=== PATIENT | female | born 1945 | race Caucasian/White ===

== ENCOUNTER → 2018-09-20 12:44 | Outpatient (CLI) | payer OTHER, SELFPAY | PROVIDERS: Family Provider Internal Medicine; PCP Internal Medicine; Visit Provider Physician Assistant | DX: M85.88 Other specified disorders of bone density and structure, other site (principal); Z78.0 Asymptomatic menopausal state; Z82.62 Family history of osteoporosis | CPT/HCPCS: 77080 ==

== ENCOUNTER → 2018-10-24 10:43 | Outpatient (CLI) | payer OTHER, SELFPAY ==
--- NOTE | 2018-10-24 | DI.MG.S_ITS ---
BILATERAL DIGITAL SCREENING MAMMOGRAM 3D/2D WITH CAD: 10/24/2018 CLINICAL: Routine screening. Family history of breast cancer. Comparison is made to exams dated: 01/31/2017 mammogram - [facility], 03/21/2015 mammogram - [facility], and 11/18/2011 mammogram - [facility]. The tissue of both breasts is heterogeneously dense. This may lower the sensitivity of mammography. Current study was also evaluated with a Computer Aided Detection (CAD) system. No significant masses, calcifications, or other findings are seen in either breast. There has been no significant interval change. IMPRESSION: NEGATIVE There is no mammographic evidence of malignancy. A 1 year screening mammogram is recommended. This exam was interpreted at Station ID: [id number]. NOTE: For mammograms, a report in lay terms will be sent to the patient. Approximately 15% of breast malignancies will not be visualized mammographically. In the management of a palpable breast mass, a negative mammogram must not discourage biopsy of a clinically suspicious lesion. Electronically Signed By: Nisha oseguera/sena:10/24/2018 11:51:51 letter sent: Normal Exam ACR BI-RADS Category 1: Negative 3341F
== END ==
PROVIDERS: PCP Internal Medicine; Visit Provider Internal Medicine
DX: Z12.31 Encounter for screening mammogram for malignant neoplasm of breast (principal); Z80.3 Family history of malignant neoplasm of breast
CPT/HCPCS: 77063; 77067

== ENCOUNTER → 2018-11-06 09:16 | Outpatient (CLI) | payer OTHER, SELFPAY ==
[2018-11-06 10:42] LABS: Add Manual Diff / Slide Review NO; Basophils Absolute Auto 100 /uL (0-100); Basophils Percent Auto 1.3 % (0-2); Eosinophils Absolute Auto 100 /uL (0-450); Eosinophils Percent Auto 2.7 % (2-4); Hemoglobin 14.8 g/dL (12.0-16.0); Lymphocytes Absolute Auto 1200 /uL (1100-4500); Lymphocytes Percent Auto 24.7 % (25-40); Mean Corpuscular HGB Conc 34.5 % (30-36); Mean Corpuscular Hemoglobin 32.7 PG (26-34); Mean Corpuscular Volume 94.8 fL (80-100); Monocytes Absolute Auto 400 /uL (0-900); Monocytes Percent Auto 8.9 % (3-14); Neutrophils Absolute Auto 3100 /uL (1500-7000); Neutrophils Percent Auto 62.4 % (50-75); Platelet Count 248 X10^3/uL (150-400); Red Blood Cell Count 4.54 X10^6/uL (4.0-5.2); Red Cell Distribution Width 13.4 % (11.6-14.8)
[2018-11-06 11:15] LABS: Alanine Aminotransferase 19 IU/L (9-52); Albumin 4.2 g/dL (3.5-5.0); Albumin Globulin Ratio 1.6 (1.0-2.8); Alkaline Phosphatase 93 U/L (38-126); Aspartate Aminotransferase 22 IU/L (14-36); BUN Creatinine Ratio 28.6 (6-22); Bilirubin Total 0.8 mg/dL (0.2-1.3); Blood Urea Nitrogen 20 mg/dL (7-17); Calcium 11.1 mg/dL (8.4-10.2); Carbon Dioxide 29 mmol/L (22-32); Chloride 103 mmol/L (98-107); Cholesterol 212 mg/dL (140-199); Estimated Glomerular Filt Rate > 60.0 mL/min (>60); Globulin 2.6 g/dL (1.7-4.1); Glucose 98 mg/dL (80-110); HDL Cholesterol 60 mg/dL (40-60); HEMOLYSIS < 15 (0-50); LDL Cholesterol Calculated 130 mg/dL (<100); Potassium 5.2 mmol/L (3.4-5.1); Sodium 139 mmol/L (137-145); Total Protein 6.8 g/dL (6.3-8.2); Triglycerides 110 mg/dL (35-150)
== END ==
PROVIDERS: PCP Internal Medicine; Visit Provider Internal Medicine
DX: R53.83 Other fatigue (principal); E78.49 Other hyperlipidemia
CPT/HCPCS: 36415; 80053; 80061; 85025

== ENCOUNTER → 2018-11-09 14:07 | Outpatient (CLI) | payer OTHER, SELFPAY ==
[2018-11-09 15:06] LABS: Calcium 10.7 mg/dL (8.4-10.2)
[2018-11-11 18:12] LABS: Parathyroid Hormone Int 102 pg/mL (14-64)
== END ==
PROVIDERS: PCP Internal Medicine; Visit Provider Internal Medicine
DX: E83.52 Hypercalcemia (principal)
CPT/HCPCS: 36415; 82306; 82310; 82330; 83970

== ENCOUNTER 2018-12-13 09:11 | Day surgery (SDC) | payer OTHER, SELFPAY ==
[2018-12-13] VITALS (8 sets, daily range): BP systolic 96–125; BP diastolic 53–71; PULSE 61–77; RESP 8–16; TEMP 35.9–36.6; O2SAT 95–100; BMI 26.9
--- NOTE | 2018-12-13 09:05 | PM.HP.1 ---
History of Present Illness Date Patient Seen: 12/13/18 Time Patient Seen: 09:05 Chief complaint: [id number] Narrative: Screening colonoscopy Meds Allergies Allergy/AdvReac Type Severity Reaction Status Date / Time INGREDIENT: NO KNOWN - NO Allergy Unknown Uncoded 08/10/17 13:06 KNOWN DRUG ALLERGY Exam Narrative Exam Narrative: Oropharynx free of lesions Chest clear to auscultation percussion Cardiac exam reveals no S3 or murmur Assessment & Plan Assessment & Plan narrative: Need for screening colonoscopy. Risks, benefits, alternatives have been explained.
--- NOTE | 2018-12-13 09:06 | PM.OP.ENDO ---
Operative Date/Time/Diagnoses Date of procedure: 12/13/18 Time of procedure: 09:06 Pre-op diagnosis: See indication and findings Procedure & Clinicians Study performed: Colonoscopy Same procedure as scheduled: Yes Indications: Screening Surgeon: James Mei Procedure Notes Procedure in detail: After informed consent was obtained the patient was placed in left lateral decubitus position. The video colonoscope was introduced the rectum slowly advanced, intending to reach the cecum but only reaching the sigmoid colon due to preparation. Preparation was poor with solid stools showing in the sigmoid. On slow withdrawal mucosa was carefully examined. Scope was removed. The patient tolerated procedure well. Blood loss none Complications none Sedation Total sedation time 10 minutes Fentanyl 100 micro g Versed 3 mg IV titration Findings 1. Solid stool in the sigmoid colon need for better preparation Patient will be rescheduled for a future time with a better preparation.
[2018-12-13] MEDS: SODIUM CHLORIDE 0.9% 1,000 ML 100 ML IV (09:33)
[2018-12-13] MEDS: fentaNYL 250 MCG/5 ML INJ IV (10:28)
[2018-12-13] MEDS: MIDAZOLAM 5 MG/5 ML VIAL IV (10:29)
--- NOTE | 2018-12-13 10:34 | SUR.OPER ---
POOR PREP, SOLID STOOL OBSERVED, CASE ABORTED
--- NOTE | 2018-12-13 10:50 | SUR.PHASEI ---
arouses easily to voice, VSS. declines PO intake. Returns to sleep immediately. Resp unlabored, skin warm and dry.
--- NOTE | 2018-12-13 11:12 | SUR.PHASEI ---
arouses easily to voice, explained to her that they were unable to complete the procedure.... asking appropriate questions.
== END 2018-12-13 11:34 | disposition home or self-care (01) ==
LOC: ENDO 09:12
PROVIDERS: PCP Internal Medicine; Visit Provider Internal Medicine Gastroenterology
PROC: 0DJD8ZZ Inspection of Lower Intestinal Tract, Via Natural or Artificial Opening Endoscopic (ICD-10-PCS; CPT 45378; principal; 2018-12-13 10:00)
DX: Z12.11 Encounter for screening for malignant neoplasm of colon (principal)
CPT/HCPCS: G0121; J2250; J3010

== ENCOUNTER → 2018-12-22 13:06 | Outpatient (CLI) | payer OTHER, SELFPAY ==
--- NOTE | 2018-12-22 | DI.NM.S_ITS ---
PROCEDURE: NM PARATHYROID SPECT RADIOPHARMACEUTICAL: 24.9 mCi Tc-99m sestamibi IV. INDICATIONS: HYPERPARATHYROIDISM TECHNIQUE: After intravenous administration of Tc-99m sestamibi, anterior planar images of the neck and mediastinum were obtained at approximately 10 minutes and 2-3 hours. SPECT images were acquired after the 10 minute planar images. COMPARISON: None. FINDINGS: On the early images, the thyroid gland is bilobed and has normal size and morphology. There is no focal increased activity in the thyroid bed. The delayed images show no preferential tracer retention in the thyroid bed to suggest parathyroid adenoma. The SPECT images demonstrate no abnormal activity in the neck. IMPRESSION: 1. No definite scintigraphic evidence of a parathyroid adenoma. Dictated by: Matthew Teixeira M.D. on 12/22/2018 at 16:47 Approved by: Matthew Teixeira M.D. on 12/22/2018 at 16:49
== END ==
PROVIDERS: PCP Internal Medicine; Visit Provider Internal Medicine
DX: E21.3 Hyperparathyroidism, unspecified (principal)
CPT/HCPCS: 78071; A9500

== ENCOUNTER → 2019-03-16 07:39 | Outpatient (CLI) | payer OTHER, SELFPAY ==
--- NOTE | 2019-03-16 | DI.US.S_ITS ---
PROCEDURE: US THYROID INDICATIONS: NONTOXIC MULTINODULAR GOITER Additional history: Hypercalcemia. TECHNIQUE: Real-time scanning was performed of the thyroid gland, with image documentation. COMPARISON: Parathyroid SPECT 12/22/2018. FINDINGS: Right: Thyroid lobe measures 6.1 x 1.8 x 1.4 cm, and is homogeneous in echotexture. Left: Thyroid lobe measures 5.7 x 1.5 x 1.3 cm, and is homogenous in echotexture. Isthmus: 2 mm thick. Nodule number: 1 Location: Right superior posterior Size: 0.7 x 0.3 x 0.5 cm. Composition: Solid Echogenicity: Hypoechoic Shape: wider than tall. Margins: Smooth Echogenic foci: None Total points: 4 ACR TI-RADS category: 4, moderately suspicious Nodule number: 2 Location: Right superior mid Size: 1 x 0.4 x 0.8 cm. Composition: Prominently solid Echogenicity: Hypoechoic Shape: wider than tall. Margins: Smooth Echogenic foci: Punctate Total points: 6 ACR TI-RADS category: 4, moderately suspicious. Nodule number: 3 Location: Right inferior Size: 1.4 x 0.8 x 1.1 cm. Composition: Prominently solid Echogenicity: Markedly hypoechoic Shape: wider than tall. Margins: Smooth Echogenic foci: Peripheral calcification Total points: 7 ACR TI-RADS category: 5, highly suspicious IMPRESSION: 1. Right inferior nodule #3 measuring 1.4 cm. TI-RADS 5. FNA is recommended. 2. Right superior nodule #2 measuring 1 cm. TI-RADS 4. Followup ultrasound in 1 year is recommended. ACR TI-RADS definitions and recommendations: TI-RADS 1 (benign): 0 points. FNA not needed. TI-RADS 2 (not suspicious): 2 points. FNA not needed. TI-RADS 3 (mildly suspicious): 3 points. * FNA if 2.5 cm or larger, follow up if 1.5 cm or larger (at 1, 3, and 5 years). TI-RADS 4 (moderately suspicious): 4-6 points. * FNA if 1.5 cm or larger, follow up if 1 cm or larger (at 1, 2, 3, and 5 years). TI-RADS 5 (highly suspicious): 7 points or more. * FNA if 1 cm or larger, follow up if 0.5 cm or larger (every year for 5 years). Dictated by: Crescencio Goodson M.D. on 03/16/2019 at 8:51 Approved by: Crescencio Goodson M.D. on 03/16/2019 at 9:18
== END ==
PROVIDERS: PCP Internal Medicine; Visit Provider Specialist/Technologist, Other Surgical Technologist
DX: E04.2 Nontoxic multinodular goiter (principal); E21.0 Primary hyperparathyroidism
CPT/HCPCS: 76536

== ENCOUNTER → 2020-04-16 12:07 | Outpatient (CLI) | payer OTHER, SELFPAY ==
[2020-04-16 12:58] LABS: Influenza A - CEPHEID Flu A NEGATIVE (NEGATIVE); Influenza B - CEPHEID Flu B NEGATIVE (NEGATIVE)
[2020-04-16 13:20] LABS: COVID19 -Nasal RAPID Negative (Negative)
== END ==
PROVIDERS: PCP Internal Medicine; Visit Provider Physician Assistant
DX: R05 Cough (principal); Z20.828 Contact with and (suspected) exposure to other viral communicable diseases
CPT/HCPCS: 87502; 87635

== ENCOUNTER → 2020-08-16 09:54 | Outpatient (CLI) | payer OTHER, SELFPAY ==
--- NOTE | 2020-08-16 09:56 | DI.MG.S_ITS ---
BILATERAL DIGITAL SCREENING MAMMOGRAM 3D/2D WITH CAD: 08/16/2020 CLINICAL: Routine screening. Family history of breast cancer. Comparison is made to exams dated: 10/24/2018 mammogram, 01/31/2017 mammogram - [facility], 03/21/2015 mammogram - [facility], and 11/18/2011 mammogram - [facility]. The tissue of both breasts is heterogeneously dense. This may lower the sensitivity of mammography. Current study was also evaluated with a Computer Aided Detection (CAD) system. No significant masses, calcifications, or other findings are seen in either breast. There has been no significant interval change. IMPRESSION: NEGATIVE There is no mammographic evidence of malignancy. A 1 year screening mammogram is recommended. This exam was interpreted at Station ID: [id number]. NOTE: For mammograms, a report in lay terms will be sent to the patient. Approximately 15% of breast malignancies will not be visualized mammographically. In the management of a palpable breast mass, a negative mammogram must not discourage biopsy of a clinically suspicious lesion. Electronically Signed By: Crescencio reyes/sena:08/18/2020 08:15:17 letter sent: Normal Exam ACR BI-RADS Category 1: Negative 3341F
== END ==
PROVIDERS: PCP Internal Medicine; Referring Provider Internal Medicine; Visit Provider Internal Medicine
DX: Z12.31 Encounter for screening mammogram for malignant neoplasm of breast (principal); Z80.3 Family history of malignant neoplasm of breast
CPT/HCPCS: 77063; 77067

== ENCOUNTER → 2020-08-27 14:51 | Outpatient (ROUT) | payer OTHER, SELFPAY ==
[2020-08-27 15:36] LABS: Aspartate Aminotransferase 27 IU/L (14-36); BUN Creatinine Ratio 29.8 (6-22); Blood Urea Nitrogen 17 mg/dL (7-17); Calcium 11.1 mg/dL (8.4-10.2); Carbon Dioxide 29 mmol/L (22-32); Chloride 105 mmol/L (98-107); Cholesterol 131 mg/dL (140-199); Estimated Glomerular Filt Rate > 60.0 mL/min (>60); Glucose 100 mg/dL (80-110); HDL Cholesterol 71 mg/dL (40-60); HEMOLYSIS < 15 (0-50); LDL Cholesterol Calculated 48 mg/dL (<100); Potassium 5.3 mmol/L (3.4-5.1); Sodium 137 mmol/L (137-145); Triglycerides 61 mg/dL (35-150)
[2020-08-27 16:06] LABS: TSH w/ Reflex to FT4 2.12 uIU/mL (0.47-4.68)
[2020-08-28 08:45] LABS: Parathyroid Hormone Int 29 pg/mL (15-65)
== END ==
PROVIDERS: PCP Internal Medicine; Visit Provider Internal Medicine
DX: E21.0 Primary hyperparathyroidism (principal); E78.2 Mixed hyperlipidemia
CPT/HCPCS: 80048; 80061; 83970; 84443; 84450

== ENCOUNTER → 2021-08-20 14:22 | Outpatient (CLI) | payer OTHER, SELFPAY ==
--- NOTE | 2021-08-20 | DI.MG.S_ITS ---
BILATERAL DIGITAL SCREENING MAMMOGRAM 3D/2D WITH CAD: 08/20/2021 CLINICAL: Routine screening. Family history of breast cancer. Comparison is made to exams dated: 08/16/2020 mammogram, 10/24/2018 mammogram, and 01/31/2017 mammogram - [facility]. The tissue of both breasts is heterogeneously dense. This may lower the sensitivity of mammography. Current study was also evaluated with a Computer Aided Detection (CAD) system. No significant masses, calcifications, or other findings are seen in either breast. There has been no significant interval change. IMPRESSION: NEGATIVE There is no mammographic evidence of malignancy. A 1 year screening mammogram is recommended. This exam was interpreted at Station ID: [id number]. NOTE: For mammograms, a report in lay terms will be sent to the patient. Approximately 15% of breast malignancies will not be visualized mammographically. In the management of a palpable breast mass, a negative mammogram must not discourage biopsy of a clinically suspicious lesion. Electronically Signed By: Ta Gonzalez M.D., jr/sena:08/20/2021 15:47:23 letter sent: Normal Exam ACR BI-RADS Category 1: Negative 3341F
== END ==
PROVIDERS: PCP Family Medicine; Referring Provider Family Medicine; Visit Provider Family Medicine
DX: Z12.31 Encounter for screening mammogram for malignant neoplasm of breast (principal); Z80.3 Family history of malignant neoplasm of breast
CPT/HCPCS: 77063; 77067

== ENCOUNTER → 2022-09-02 14:42 | Outpatient (CLI) | payer OTHER, SELFPAY ==
--- NOTE | 2022-09-02 14:44 | DI.MG.S_ITS ---
BILATERAL DIGITAL SCREENING MAMMOGRAM 3D/2D WITH CAD: 09/02/2022 CLINICAL: Routine screening. Family history of breast cancer. Comparison is made to exams dated: 08/20/2021 mammogram, 08/16/2020 mammogram, and 10/24/2018 mammogram - [facility]. Both breasts are heterogeneously dense, which may obscure small masses (category c / 51-75% glandular tissue). Current study was also evaluated with a Computer Aided Detection (CAD) system. No significant masses, calcifications, or other findings are seen in either breast. There has been no significant interval change. IMPRESSION: NEGATIVE There is no mammographic evidence of malignancy. A 1 year screening mammogram is recommended. Based on the Tyrer Cuzick model (a risk assessment model) the patient's lifetime risk is 4.8% and her 10 year risk is 0.0%. According to the ACR, ACS, and NCCN guidelines, an annual breast MRI exam along with mammogram is recommended if the patient's lifetime risk is 20% or greater. This exam was interpreted at Station ID: [id number]. NOTE: For mammograms, a report in lay terms will be sent to the patient. Approximately 15% of breast malignancies will not be visualized mammographically. In the management of a palpable breast mass, a negative mammogram must not discourage biopsy of a clinically suspicious lesion. Electronically Signed By: Alonzo crespo/sena:09/02/2022 15:05:52 letter sent: Normal Exam ACR BI-RADS Category 1: Negative 3341F
== END ==
PROVIDERS: PCP Internal Medicine; Referring Provider Internal Medicine; Visit Provider Internal Medicine
DX: Z12.31 Encounter for screening mammogram for malignant neoplasm of breast (principal); Z80.3 Family history of malignant neoplasm of breast
CPT/HCPCS: 77063; 77067

== ENCOUNTER → 2023-03-10 09:55 | Outpatient (CLI) | payer OTHER, SELFPAY ==
--- NOTE | 2023-03-10 09:56 | DI.RAD.S_ITS ---
PROCEDURE: XR HIP W PEL IF DONE RT 2V INDICATIONS: right lateral pain acute on chronic TECHNIQUE: To views of the hip were acquired. COMPARISON: None. FINDINGS: Bones: No fractures or dislocations. Mild to moderate bilateral hip joint space narrowing with juxta-articular osteophytosis. No suspicious bony lesions. The visualized pelvic ring appears intact. Soft tissues: No suspicious soft tissue calcifications or masses. IMPRESSION: 1. No acute fracture. If there is high clinical suspicion for a radiographically occult fracture, consider CT or MRI for further evaluation. 2. Mild to moderate bilateral hip joint space narrowing. Dictated by: Edilson Cabrales M.D. on 03/10/2023 at 18:31 Approved by: Edilson Cabrales M.D. on 03/10/2023 at 18:32
== END ==
PROVIDERS: PCP Internal Medicine; Referring Provider Physician Assistant; Visit Provider Physician Assistant
DX: M70.71 Other bursitis of hip, right hip (principal)
CPT/HCPCS: 73502

== ENCOUNTER → 2023-09-14 12:19 | Outpatient (CLI) | payer MEDICARE, SELFPAY ==
--- NOTE | 2023-09-14 12:20 | DI.US.S_ITS ---
PROCEDURE: US THYROID INDICATIONS: thyroid nodules TECHNIQUE: Real-time scanning was performed of the thyroid gland, with image documentation. COMPARISON: [facility], US, US THYROID, 03/16/2019, 8:04. FINDINGS: Thyroid: Right lobe measures 5.6 x 1.8 x 1.6 cm. Left lobe measures 5.6 x 2.1 x 1.3 cm. Isthmus is 0.3 cm thick. Echotexture is heterogeneous. Nodule number: 1 Location: Right superior posterior Size: 0.8 x 0.5 x 0.7 cm; 0.7 x 0.3 x 0.8 cm. Composition: Solid Echogenicity: Isoechoic Shape: wider than tall. Margins: Smooth Echogenic foci: Punctate Total points: 6 ACR TI-RADS category: 4 Nodule number: 2 Location: Right superior mid Size: 1.3 x 0.7 x 1.0 cm; previously 1.0 by 0.4 x 0.8 cm. Composition: Solid Echogenicity: Isoechoic Shape: wider than tall. Margins: Irregular Echogenic foci: Macrocalcification Total points: 5 ACR TI-RADS category: 4 Nodule number: 3 Location: Right inferior Size: 1.6 x 0.9 x 0.8 cm; previously 1.4 x 0.8 x 1.1 cm. Composition: Solid Echogenicity: Hypoechoic Shape: wider than tall. Margins: Irregular Echogenic foci: Peripheral calcification Total points: 7 ACR TI-RADS category: 5 IMPRESSION: 3 right thyroid nodules are again noted. 1. Nodule #3 is ACR TI-RADS category 5; highly suspicious. It appears minimally changed in size. FNA recommended if not already performed. 2. Nodule #1 and #2 are ACR TI-RADS category 4; moderate suspicious. Continue annual ultrasound follow-up to document 5 year stability. ACR TI-RADS definitions and recommendations: TI-RADS 1 (benign): 0 points. FNA not needed. TI-RADS 2 (not suspicious): 2 points. FNA not needed. TI-RADS 3 (mildly suspicious): 3 points. * FNA if 2.5 cm or larger, follow up if 1.5 cm or larger (at 1, 3, and 5 years). TI-RADS 4 (moderately suspicious): 4-6 points. * FNA if 1.5 cm or larger, follow up if 1 cm or larger (at 1, 2, 3, and 5 years). TI-RADS 5 (highly suspicious): 7 points or more. * FNA if 1 cm or larger, follow up if 0.5 cm or larger (every year for 5 years). Dictated by: Vanda Florentino M.D. on 09/15/2023 at 9:50 Approved by: Vanda Florentino M.D. on 09/15/2023 at 10:04
--- NOTE | 2023-09-14 12:20 | DI.RAD.S_ITS ---
PROCEDURE: XR DEXA AXIAL SKELETON INDICATIONS: osteopenia COMPARISON: [facility], CR, XR DEXA AXIAL SKELETON, 09/20/2018, 13:07. FINDINGS: Lumbar Spine: Bone mineral density 0.814 g/cm2, T score -2.1, osteopenia. Left Hip: Bone mineral density 0.673 g/cm2, T score -2.2, osteopenia. Left Femoral Neck: Bone mineral density 0.520 g/cm2, T score -3.0, osteoporosis. Right Hip: Bone mineral density 0.715 g/cm2, T score -1.9, osteopenia. Right Femoral Neck: Bone mineral density 0.608 g/cm2, T score -2.2, osteopenia. Fracture Risk Calculation (when applicable): 10-year fracture risk of a major osteoporotic fracture 42% and of a hip fracture 18%. (T score greater or equal to -1.0 to: NORMAL) (T score from -1.1 to -2.4: OSTEOPENIA) (T score less than or equal to -2.5: OSTEOPOROSIS) IMPRESSION: 1. Based on WHO criteria the patient has osteoporosis. 2. Cannot assess statistical significance of bone mineral density change between the current exam and the last exam because of dissimilar scan types and analysis methods. Follow-up guidelines as follows: Osteoporosis: Consider a repeat DEXA and Vertebral Fracture Assessment (VFA) exam in 2 years or sooner if medically necessary, to reassess this patient's status. Osteopenia: Consider a repeat DEXA in 2-3 years to reassess this patient's status, or if there is a new clinical indication. Normal: Consider a repeat DEXA in 5 years or sooner, or if there is a new clinical indication. Dictated by: Vanda Florentino M.D. on 09/14/2023 at 13:21 Approved by: Vanda Florentino M.D. on 09/14/2023 at 13:25
== END ==
PROVIDERS: PCP Internal Medicine; Referring Provider Internal Medicine; Visit Provider Internal Medicine
DX: M81.0 Age-related osteoporosis without current pathological fracture (principal); E04.2 Nontoxic multinodular goiter
CPT/HCPCS: 76536; 77080

== ENCOUNTER → 2023-09-16 09:15 | Outpatient (CLI) | payer MEDICARE, SELFPAY ==
[2023-09-16 15:53] LABS: Aspartate Aminotransferase 20 IU/L (14-36); BUN Creatinine Ratio 32.3 (6-22); Blood Urea Nitrogen 20 mg/dL (7-17); Calcium 10.5 mg/dL (8.4-10.2); Carbon Dioxide 27 mmol/L (22-32); Chloride 108 mmol/L (98-107); Cholesterol 125 mg/dL (140-199); Estimated Glomerular Filt Rate > 60 mL/min (>60); Glucose 95 mg/dL (80-110); HDL Cholesterol 79 mg/dL (40-60); HEMOLYSIS < 15 (0-50); LDL Cholesterol Calculated 33 mg/dL (<100); Potassium 4.6 mmol/L (3.4-5.1); Sodium 140 mmol/L (137-145); Triglycerides 67 mg/dL (35-150)
== END ==
PROVIDERS: PCP Internal Medicine; Referring Provider Internal Medicine; Visit Provider Internal Medicine
DX: E78.2 Mixed hyperlipidemia (principal)
CPT/HCPCS: 36415; 80048; 80061; 84450

== ENCOUNTER → 2023-11-24 14:17 | Outpatient (CLI) | payer MEDICARE, SELFPAY ==
--- NOTE | 2023-11-24 14:18 | DI.US.S_ITS ---
PROCEDURE: US FINE NEEDLE ASPIRATION INDICATIONS: Radiology lower TECHNIQUE: The indications, alternatives, benefits, risks, and complications of the procedure were explained to the patient. Written informed consent was obtained and placed in the chart. The area of interest was examined sonographically and a site was chosen for ultrasound guided percutaneous sampling. The skin was prepared and draped in the usual fashion, and anesthetized with 1% lidocaine infiltrated from the skin down to the lesion. Multiple passes were then performed, with contents emptied into an appropriate pathology specimen container. A bandage was applied to the area of access at completion of the study. COMPARISON: None. FINDINGS: Location(s) of lesion(s) sampled: Inferior right thyroid lobe. Logan: 25 gauge hypodermic needles. Number of passes: 5 Medications: 1% lidocaine for local anaesthesia. Complications: None. IMPRESSION: Successful ultrasound-guided fine needle aspiration the right thyroid gland, with cytology results pending. Dictated by: Rashel Ferguson M.D. on 12/02/2023 at 14:20 Approved by: Rashel Ferguson M.D. on 12/02/2023 at 14:22
--- NOTE | 2023-11-24 15:31 | PATH_ITS ---
Note [facility] Accession Number: [id number] TESTS RESULT FLAG UNITS REF RANGE LAB Clinician Provided Cytology Information No. of containers..01 Other (Miscellaneous) No. of containers..00 Previously Prepared Cytology Slide Source: RIGHT THYROID MASS DIAGNOSIS: RIGHT THYROID MASS, FINE NEEDLE ASPIRATION. INADEQUATE, INSUFFICIENT CELLS FOR STUDY. BETHESDA CATEGORY I. UNSATISFACTORY. COMMENT: MACROPHAGES AND SCANT COLLOID PRESENT, SUGGESTIVE OF POSSIBLE CYSTIC/DEGENERATIVE CHANGES. FOLLICULAR EPITHELIAL CELLS ARE NOT PRESENT FOR EVALUATION. RE-ASPIRATION RECOMMENDED. Pathologist ICD10: 01 E04.1 Clinical history: Thyroid: Right lobe measures 5.6 x 1.8 x 1.6 cm. Left lobe measures 5.6 x 2.1 x 1.3 cm. Isthmus is 0.3 cm thick. Echotexture is heterogeneous. Nodule number: 1 Location: Right superior posterior Size: 0.8 x 0.5 X 0.7 cm; 0.7 x 0.3 x 0.8 cm, Composition: Solid Echogenicity: Isoechoic Shape: wider than tall. Margins: Smooth Echogenjc foci: Punctate Total points: 6 ACR TI,RADS category: 4 Nodule number: 2 Location: Right superior mid Size: 1.3 x 0.7 x 1.0 cm; previously 1.0 by 0.4 x 08 cm. Composition: Solid Echogenicity: Isoechoic Shape: wider than tall. Margins: Irregular Echogenjc foci: Macrocalcification Total points: 5 ACR T I-RADS category: 4 Nodule number; 3 Location: Right inferior Size: 16 x 0.9 x 0.8 cm; previously 1.4 x 0.8 x 1.1 cm. Composition: Solid Echogenicity: Hypoechoic Shape: wider than tall. Margins: Irregular Echogenic foci: Peripheral calcification Total points: 7 ACR TI-RADS category: 5 IMPRESSION: 3 right thyroid nodules are again noted. 1. Nodule #3 is ACR TI-RADS category 5; highly suspicious. It appears minimally changed in size. FNA recommended if not already performed. 2. Nodule #1 and #2 are ACR TI-RADS category 4; moderate suspicious. Continue annual ultrasound follow-up to document 5 year stability. Signed out by: Luc Pacheco MD, Pathologist NPI- [id number] Performed by: Leo Paz, Heat Reader ([facility]) Gross description: 30 CC, COLORLESS, CLEAR RECIEVED: IN CYTOLYT WITH 5 ALCOHOL FIXED AND 5 QUICK STAINED SLIDES ALSO 1 RNA VIAL WILL ON 05-10-2024.VO /VDU 11/25/2023 0652 Local FLAG LEGEND: L-Low Normal,H-High Normal,LL-Alert Low,HH-Alert High <-Panic Low,>-Panic High,A-Abnormal,AA-Critical Abnormal Performed at: 01 =Z [facility] [address] [facility], [place] [address] Matthew Honeycutt MD, Performed at: [address] [facility] [address] [facility], [place], [place] [id number] MD Matthew Honeycutt MD Phone: [phone]
== END ==
PROVIDERS: PCP Internal Medicine; Referring Provider Internal Medicine; Visit Provider Internal Medicine
DX: E04.1 Nontoxic single thyroid nodule (principal)
CPT/HCPCS: 10005

== ENCOUNTER → 2024-06-26 09:58 | Outpatient (CLI) | payer MEDICARE, SELFPAY ==
--- NOTE | 2024-06-26 10:00 | DI.RAD.S_ITS ---
PROCEDURE: XR CHEST 2V INDICATIONS: Cough TECHNIQUE: 2 views of the chest were acquired. COMPARISON: None. FINDINGS: Surgical changes and devices: None. Lungs and pleura: Lungs are clear. No pleural effusions or pneumothorax. Mediastinum: Mediastinal contours are normal. Heart size is normal. Bones and chest wall: No suspicious bony abnormalities. Soft tissues appear unremarkable. IMPRESSION: No acute cardiopulmonary abnormality is seen. Dictated by: Silvano Cooper M.D. on 06/26/2024 at 15:32 Approved by: Silvano Cooper M.D. on 06/26/2024 at 15:32
== END ==
PROVIDERS: PCP Internal Medicine; Referring Provider Internal Medicine; Visit Provider Internal Medicine
DX: J06.9 Acute upper respiratory infection, unspecified (principal); R05.9 Cough, unspecified
CPT/HCPCS: 71046

== ENCOUNTER → 2024-09-10 09:57 | Outpatient (CLI) | payer MEDICARE, SELFPAY ==
[2024-09-10 11:42] LABS: Aspartate Aminotransferase 25 IU/L (14-36); BUN Creatinine Ratio 31.8 (6-22); Blood Urea Nitrogen 21 mg/dL (7-17); Calcium 10.4 mg/dL (8.4-10.2); Carbon Dioxide 25 mmol/L (22-32); Chloride 106 mmol/L (98-107); Cholesterol 130 mg/dL (140-199); Estimated Glomerular Filt Rate > 60 mL/min (>60); Glucose 98 mg/dL (70-99); HDL Cholesterol 73 mg/dL (40-60); HEMOLYSIS < 15 (0-50); LDL Cholesterol Calculated 42 mg/dL (<100); Potassium 4.9 mmol/L (3.4-5.1); Sodium 138 mmol/L (137-145); Triglycerides 76 mg/dL (35-150)
[2024-09-10 12:07] LABS: TSH w/ Reflex to FT4 1.19 uIU/mL (0.47-4.68)
== END ==
PROVIDERS: PCP Internal Medicine; Referring Provider Internal Medicine; Visit Provider Internal Medicine
DX: E78.2 Mixed hyperlipidemia (principal); M81.0 Age-related osteoporosis without current pathological fracture; Z82.0 Family history of epilepsy and other diseases of the nervous system; E04.1 Nontoxic single thyroid nodule
CPT/HCPCS: 36415; 80048; 80061; 84443; 84450